=== PATIENT | female | born 1980 | race Two or more races ===

== ENCOUNTER 2016-11-16 05:35 | Day surgery (SDC) | payer BC ==
[~2016-11-16] VITALS: Ht 167.6 cm; Wt 64.8 kg
[2016-11-16 06:39] VITALS: Ht 167.6 cm; Wt 64.8 kg
[2016-11-16] MEDS ORDERED: OMEP40CA6 PO (06:51)
[2016-11-16] MEDS ORDERED: MIDAZOLAM 1 MG/ML 2 ML INJ ONE ×2 (07:51)
[2016-11-16] MEDS ORDERED: FENTAnyl 50 MCG/ML VIAL ONE (07:52)
[2016-11-16 08:08] VITALS: BP 94/63; PULSE 63; RESP 15
--- NOTE | 2016-11-16 10:46 | GILP ---
DATE OF PROCEDURE: NAME OF PROCEDURE: Esophagogastroduodenoscopy and biopsy. SURGEON: Natasha Tapia MD PREOPERATIVE DIAGNOSES: 1. Abdominal pain. 2. Chronic heartburn. POSTOPERATIVE DIAGNOSES: 1. Gastroesophageal reflux disease. 2. Bile reflux gastritis. 3. Gastric mucosal biopsies were taken for Helicobacter pylori test. INDICATION FOR THE PROCEDURE: Ms. Pinky Cha is a 36-year-old female patient who had upper abd ominal pain and chronic heartburn, not responding to therapy. The patient was scheduled for endosco pic examination for further evaluation. The procedure and possible complications are well explained to the patient, she understood and conse nted to the procedure. DESCRIPTION OF PROCEDURE: Under the influence of fentanyl and Versed, the gastroscope was carefully introduced into the esophagus and under direct vision, it was advanced to the stomach and through t he pylorus into the duodenal bulb and descending duodenum. FINDINGS: ESOPHAGUS: The patient had gastroesophageal reflux disease. STOMACH: She had bile reflux gastritis with erosions. Gastric mucosal biopsies were taken for H. p ylori test. DUODENUM: Normal. She tolerated the procedure very well and there was no complication from the procedure. At the end of the procedure, she was awake with stable vital signs and she was discharged home to the care of [facility]. IMPRESSION: 1. Gastroesophageal reflux disease. 2. Bile reflux gastritis. 3. Gastric mucosal biopsies were taken for Helicobacter pylori test. PLAN: 1. Continue omeprazole. 2. Add Carafate 1 g p.o. t.i.d. a.c. 3. Await H. pylori report as well as abdominal ultrasound report. Dictated By: NATASHA PORTER/RUBEN Conf#: [id number] DID#: [id number]
--- NOTE | 2016-11-16 16:49 | CONS ---
DATE OF ADMISSION: 11/16/2016 DATE OF CONSULTATION: TYPE OF CONSULTATION: Preoperative gastroenterology consultation. Dear Dr. Felton: I thank you very much for this kind referral. Ms. Pinky De La Cruz is a 36-year-old female patient who has been referred to me for further evaluation of upper abdominal pain and chronic heartburn, not r esponding to therapy with omeprazole. There is no past history of peptic ulcer disease. She is not taking any nonsteroidal anti-inflammatory agents. Her appetite has been somewhat poor, and she sta sowmya that she has been losing weight. There is no history of gallstones. She does not have any feve r, chills or jaundice. There is no history of liver disease. She denies any change in the bowel morgan bits or rectal bleeding. There is no past history of inflammatory bowel disease. She is not a hype rtensive or diabetic. She does not have any heart disease or lung problem. There is no history of kidney disease. SOCIAL HISTORY: She is a nonsmoker. She does not abuse alcohol. FAMILY HISTORY: Negative for gastrointestinal tract neoplasm. ALLERGIES: THERE IS NO HISTORY OF SIGNIFICANT DRUG ALLERGY. MEDICATIONS: Omeprazole. PHYSICAL EXAMINATION GENERAL: She is 5 feet 7 inches tall and she weighs 137 pounds. HEART: Examination of the heart reveals normal first and second heart sounds. LUNGS: Clear. ABDOMEN: Soft without any distention. Liver and spleen are not palpable. There are no masses. Th ere is no focal tenderness. Normal bowel sounds are heard. CENTRAL NERVOUS SYSTEM: Does not reveal any focal neurological deficit. IMPRESSION: 1. Upper abdominal pain and chronic heartburn, not responding to therapy with omeprazole. 2. History of weight loss. 3. The patient had abdominal ultrasound and she states it was negative. 4. The patient's grandmother had colon cancer. PLAN: 1. Continue omeprazole. 2. Abdominal ultrasound for further evaluation of abdominal pain. 3. Endoscopic examination for further evaluation. The procedure and possible complications are well explained to the patient. She understands and con sents to the procedure. I thank you once again. With warmest personal regards, Dictated By: NATASHA PORTER/RUBEN Conf#: [id number] DID#: [id number]
== END 2016-11-16 10:16 | disposition home or self-care (01) ==
LOC: GIL 05:35
PROVIDERS: ATTEND Internal Medicine Gastroenterology
DX: K21.9 Gastro-esophageal reflux disease without esophagitis (principal); K29.60 Other gastritis without bleeding
CPT/HCPCS: 43239; 87081; J2250; J3010; Z7610